=== PATIENT | female | born 1935 | race Caucasian/White ===

== ENCOUNTER 2017-01-07 20:21 | Emergency (ER) | payer MEDICARE, OTHER ==
--- NOTE | 2017-01-07 20:26 | ERPHSYRPT ---
- History of Present Illness Time Seen by Provider: 01/07/17 20:23 Source: patient, EMS Exam Limitations: no limitations Physician History: pt is having problems with indwelling urinary catheter clogging and is retaining again with fullness no other abd pain no trauma; Timing/Duration: today Activites at Onset: none Quality: fullness Onset Location: suprapubic Pain Radiation: none Severity of Pain-Max: mild Severity of Pain-Current: mild Prior abdominal problems: similar symptoms Sexual intercourse history: not active Modifying Factors: Improves With: nothing Associated Symptoms: urinary frequency Allergies/Adverse Reactions: albumin human [From Rebif (with albumin)] Allergy (Verified 01/07/17 22:02) fluconazole [From Diflucan] Allergy (Verified 01/07/17 22:02) indapamide [From Lozol] Allergy (Verified 01/07/17 22:02) interferon beta-1a [From Rebif (with albumin)] Allergy (Verified 01/07/17 22:02) pregabalin [From Lyrica] Allergy (Verified 01/07/17 22:02) propoxyphene [From Darvon] Allergy (Verified 01/07/17 22:02) Sulfa (Sulfonamide Antibiotics) Allergy (Verified 01/07/17 22:02) beta seron Allergy (Uncoded 01/07/17 22:02) umuran Allergy (Uncoded 01/07/17 22:02) - Review of Systems Constitutional: No Fever, No Chills Eyes: No Symptoms Ears, Nose, & Throat: No Symptoms Respiratory: No Cough, No Dyspnea Cardiac: No Chest Pain, No Edema, No Syncope Abdominal/Gastrointestinal: No Abdominal Pain, No Nausea, No Vomiting, No Diarrhea Genitourinary Symptoms: Frequency, Urinary Retention, No Dysuria Musculoskeletal: No Back Pain, No Neck Pain Skin: No Rash Neurological: No Dizziness, No Focal Weakness, No Sensory Changes Psychological: No Symptoms Endocrine: No Symptoms All Other Systems: Reviewed and Negative - Past Medical History Neurological History: No Pertinent History - Nursing Vital Signs Nursing Vital Signs: Initial Vital Signs Temperature 97.6 F 01/07/17 20:28 Pulse Rate 111 H 01/07/17 20:28 Respiratory Rate 18 01/07/17 20:28 O2 Sat by Pulse Oximetry 100 01/07/17 20:28 Pain Scale Pain Intensity 3 - Physical Exam General Appearance: no apparent distress, alert Eye Exam: PERRL/EOMI, eyes nml inspection Ears, Nose, Throat Exam: normal ENT inspection, TMs normal, pharynx normal, moist mucous membranes Neck Exam: normal inspection, non-tender, supple, full range of motion Respiratory Exam: normal breath sounds, lungs clear, No respiratory distress Cardiovascular Exam: regular rate/rhythm, normal heart sounds, normal peripheral pulses Gastrointestinal/Abdomen Exam: soft, No tenderness, No mass Pelvic Exam: deferred Rectal Exam: deferred Back Exam: normal inspection, normal range of motion, No CVA tenderness, No vertebral tenderness Extremity Exam: normal inspection, normal range of motion, pelvis stable Neurologic Exam: alert, oriented x 3, cooperative, billet sawyer II-XII nml as tested, normal mood/affect, sensation nml, No motor deficits Skin Exam: normal color, warm, dry Lymphatic Exam: No adenopathy - Course Nursing assessment & vital signs reviewed: Yes Ordered Tests: Active Orders 24 hr Category Date Time Status Catheter-[place] STAT Care 01/07/17 20:26 Active IV Insertion STAT Care 01/07/17 22:03 Active BMP Stat Lab 01/07/17 22:27 Completed CBC W DIFF Stat Lab 01/07/17 22:27 Completed CULTURE,URINE Stat Lab 01/07/17 21:39 Received UA W/ MICROSCOPIC Stat Lab 01/07/17 21:39 Completed Medication Summary Discontinued Medications Generic Name Dose Route Start Last Admin Trade Name Freq PRN Reason Stop Dose Admin Ceftriaxone Sodium/Dextrose 1 g in 50 mls @ 100 mls/hr 01/07/17 22:04 22:28 Rocephin 1 Gm-D5w 50 Ml Bag IV 01/07/17 22:33 100 mls/hr STAT STA Administration Ceftriaxone Sodium/Dextrose Confirm 01/07/17 22:27 Rocephin 1 Gm-D5w 50 Ml Bag Administered 01/07/17 22:28 Dose 1 g in 50 mls @ ud IV .9SLIDES-MED ONE Lab/Rad Data: Laboratory Result Diagrams 01/07/17 22:27 01/07/17 22:27 Laboratory Results 01/07/17 01/07/17 01/07/17 Range/Units 22:27 22:27 21:39 WBC 9.1 (4.0-10.5) K/mm3 RBC 4.43 (4.1-5.4) M/mm3 Hgb 12.6 (12.0-16.0) gm/dl Hct 39.1 (35-47) % MCV 88.3 (78-100) fl MCH 28.4 (26-32) pg MCHC 32.2 (32-36) g/dl RDW 15.2 H (11.5-14.0) % Plt Count 216 (150-450) K/mm3 MPV 10.7 H (6-9.5) fl Gran % 69.6 H (36.0-66.0) % Lymphocytes % 15.6 L (24.0-44.0) % Monocytes % 12.6 H (0.0-12.0) % Eosinophils % 1.8 (0.00-5.0) % Basophils % 0.4 (0.0-0.4) % Basophils # 0.04 (0-0.4) Sodium 141 (136-145) mEq/L Potassium 4.4 (3.5-5.1) mEq/L Chloride 105 (98-107) mEq/L Carbon Dioxide 25.3 (21-32) mEq/L Anion Gap 15.0 (5-15) MEQ/L BUN 19 (9-20) mg/dL Creatinine 1.17 (0.55-1.30) mg/dl Estimated GFR 47 ML/MIN Glucose 241 H (70-110) MG/DL Calcium 9.6 (8.5-10.1) mg/dL Ur Collection Type INDWELLING CATH Urine Color YELLOW (YELLOW) Urine Appearance CLOUDY (CLEAR) Urine pH 6.0 (5-6) Ur Specific [place] 1.015 (1.005-1.025) Urine Protein TRACE (Negative) Urine Ketones NEGATIVE (NEGATIVE) Urine Blood 250 (0-5) Colin/ul Urine Nitrite POSITIVE (NEGATIVE) Urine Bilirubin NEGATIVE (NEGATIVE) Urine Urobilinogen NORMAL (0-1) mg/dL Ur Leukocyte Esterase 2+ (NEGATIVE) Urine Microscopic RBC 10-15 (0-2) /HPF Urine Microscopic WBC 25-50 (0-5) /HPF Ur Epithelial Cells FEW (FEW) /HPF Urine Bacteria MANY (NEGATIVE) /HPF Urine Mucus MODERATE (NEGATIVE) /HPF Urine Culture Reflexed YES (NO) Urine Glucose NEGATIVE (NEGATIVE) mg/dL Specimen Received 01/07/17 0404 - Progress Progress: improved, re-examined Air Movement: good Progress Note: 01/07/17 23:17 pt is asymp now with new cath - will resume keflex and add levaquin; discussed need for further out pt w/u with pt and family and they will f/u with PCP for this and are comfortable with outpt tx meantime; Blood Culture(s) Obtained: No Counseled pt/family regarding: lab results, diagnosis, need for follow-up - Departure Time of Disposition: 23:18 Departure Disposition: Home Clinical Impression: UTI (urinary tract infection), catheter occlusion Condition: Good Critical Care Time: No Referrals: DOCTOR,NO FAMILY [Primary Care Provider] - Instructions: Urinary Tract Infection (UTI), Kidney Failure Additional Instructions: although there is only slight decrease in renal function we are giving instructions to include things to watch out for with renal failure/kidney disease. It is important to see your Dr for further workup of this and to readjust antibiotics based upon culture. and return meantime if not improving Prescriptions: Cephalexin Mh 500 mg [Keflex 500 mg] 500 mg PO TID #30 capsule Levofloxacin [Levaquin] 500 mg PO DAILY #10 tablet
[2017-01-07 21:52] LABS: Collection Type INDWELLING CATH
[2017-01-07 21:53] LABS: ADD URINE CULTURE? YES (NO); Bacteria MANY /HPF (NEGATIVE); Bilirubin NEGATIVE (NEGATIVE); Blood 250 Ery/ul (0-5); COMPLETE URINE MICROSCOPIC? YES; Epithelial Cells FEW /HPF (FEW); Glucose NEGATIVE (NEGATIVE); Leukocyte Esterase 2+ (NEGATIVE); Mucus MODERATE /HPF (NEGATIVE); WBC 25-50 /HPF (0-5)
[2017-01-07] MEDS ORDERED: ROCEPHIN 1 Gm-D5w 50 ml Bag** 1 G/50 ML IVPB IV STA (22:04)
[2017-01-07] MEDS ORDERED: ROCEPHIN 1 Gm-D5w 50 ml Bag** 1 G/50 ML IVPB IV ONE (22:27)
[2017-01-07 22:31] LABS: BASOPHIL % 0.4 % (0.0-0.4); Eosinophil % 1.8 % (0.00-5.0); Granulocytes % 69.6 % (36.0-66.0); Lymphocytes % 15.6 % (24.0-44.0); Mean Cell Volume 88.3 fl (78-100); Mean Corpuscular Hemoglobin 28.4 pg (26-32); Mean Platelet Volume 10.7 fl (6-9.5); Monocytes % 12.6 % (0.0-12.0); Platelet Count 216 K/mm3 (150-450); Red Blood Count 4.43 M/mm3 (4.1-5.4); Red Cell Distribution Width 15.2 % (11.5-14.0); White Blood Count 9.1 K/mm3 (4.0-10.5)
[2017-01-07 22:48] LABS: Carbon Dioxide 25.3 mEq/L (21-32); Potassium 4.4 mEq/L (3.5-5.1)
[2017-01-07] MEDS ORDERED: Levofloxacin 250MG Tablet PO ONE (23:24)
[2017-01-07] MEDS ORDERED: Levofloxacin 250MG Tablet ONE (23:30)
[2017-01-07 23:38] VITALS: BP 146/78; PULSE 94; O2SAT 95
== END 2017-01-08 00:49 | disposition home or self-care (01) ==
LOC: ED 20:21
DX: N39.0 Urinary tract infection, site not specified (principal); T83.098A Other mechanical complication of other urinary catheter, initial encounter
CPT/HCPCS: 36000; 36415; 51702; 80048; 81000; 85025; 87077; 87086; 87186; 96365; 99284; J0696; A9270-GY